=== PATIENT | female | born 1995 | race Caucasian/White ===

== ENCOUNTER 2016-08-03 21:06 | Emergency (ER) | payer OTHER ==
[~2016-08-03] VITALS: Ht 157.5 cm; Wt 68.0 kg
[~2016-08-03 21:06] MED LIST: CARAFATE1 GM/10 M1 PO; HYDROCODONE/ACE1 TA1 PO; NEXPLANON68 M1; PANTOPRAZOLE SO40 M1 PO; PREVPAC PATIEN1 EACH PO; PRILOSEC OTC20 MG PO; TRAMADOL HCL50 M1 PO; ZOFRAN ODT4 MG PO
[2016-08-03] MEDS ORDERED: TYLENOL WITH C1 EACH PO (21:49)
--- NOTE | 2016-08-03 21:50 | ED CARDIAC/CP/PALPITATIONS ---
History of Present Illness General Chief Complaint: Shoulder Injury Stated Complaint: RIGHT SIDED SHOULDER AND ARM PAIN Source: patient Exam Limitations: no limitations Vital Signs & Intake/Output Vital Signs & Intake/Output Vital Signs Date Time Temp Pulse Resp B/P Pulse O2 O2 Flow FiO2 Ox Delivery Rate 08/03 2207 97.2 75 18 138/74 98 08/03 2107 97.2 78 16 143/84 100 Room Air Allergies Coded Allergies: NO KNOWN ALLERGIES (08/03/16) Reconcile Medications Tylenol With Codeine (Tylenol With Codeine #3 Tablet) 300 MG-30 MG TABLET 1-2 TAB PO Q4-6 PRN PRN PAIN Triage Note: PT TO ED C/O RIGHT CHEST WALL PAIN RADIATING TO SHOULDER X 4 DAYS. DENIES RECENT INJURIES. HAD SAME PAIN WHEN SHE WAS YOUNGER AND WAS TOLD IT WAS GROWING PAINS. PAIN REPRODUCED BY LYING FLAT AND DEEP BREATHING. TOOK 1600MG IBUPROFEN WITHOUT RELIEF. INSTRUCTED NOT TO TAKE 2 PRESCRIPTION STRENGTH IBUPROFENS IN FUTURE Triage Nurses Notes Reviewed? yes : No Patient currently breastfeeds: No HPI: 20-year-old female with anterior right-sided chest pain that radiates into the right shoulder has been going on fairly constantly for the last 4 days. It is worse when taking a deep breaths more worse with the right arm motion, worse with palpation of the anterior sternum on the right side and pectoralis region. She has had this pain in the past, she states that 2 years old she had atrial septal defect and she used to get this pain intermittently throughout her teenage years. She has not had the pain approximately 3 or 4 years. She is taking appropriate without relief. She also has a history of stomach ulcers. There is no cough no hemoptysis no shortness of breath no dyspnea on exertion, no leg swelling or edema. She has the implantable control into her left arm. No history of PE or DVT, no tachycardia symptoms or palpitations Past History Travel History Traveled to [place] past 21 day No Medical History Any Pertinent Medical History? see below for history Neurological: NONE EENT: NONE Cardiovascular: ASD, repaired Respiratory: NONE Gastrointestinal: GALLSTONES Hepatic: NONE Renal: NONE Musculoskeletal: NONE Psychiatric: NONE Endocrine: NONE Surgical History Surgical History: ASD repair Psychosocial History What is your primary language Hebrew Tobacco Use: Never used ETOH Use: occasional use Illicit Drug Use: denies illicit drug use Family History Hx Contributory? No Review of Systems Review of Systems Constitutional: Reports: see HPI. EENTM: Reports: no symptoms. Respiratory: Reports: see HPI. Cardiovascular: Reports: see HPI. GI: Reports: no symptoms. Genitourinary: Reports: no symptoms. Musculoskeletal: Reports: no symptoms. Skin: Reports: no symptoms. Neurological/Psychological: Reports: no symptoms. Hematologic/Endocrine: Reports: no symptoms. Immunologic/Allergic: Reports: no symptoms. All Other Systems: Reviewed and Negative Physical Exam Physical Exam General Appearance: well developed/nourished, no apparent distress, alert, awake Head: atraumatic, normal appearance Eyes: Bilateral: normal appearance, PERRL, EOMI. Ears, Nose, Throat: normal pharynx, normal ENT inspection, hearing grossly normal Neck: normal inspection, supple, full range of motion Respiratory: normal breath sounds, no respiratory distress, TENDERNESS TO THE R SIDE OF THE MID STERNAL REGION AND R PECTORALIS REGION. INCREASE PAIN WITH RESISTIVE R ARM ADDUCTION Cardiovascular: regular rate/rhythm Peripheral Pulses: 4+ carotid (R), 4+ carotid (L), 4+ radial (R), 4+ radial (L) Gastrointestinal: normal bowel sounds, soft, non-tender, no organomegaly Back: normal inspection, normal range of motion Extremities: normal inspection Neurologic/Psych: no motor/sensory deficits, awake, alert, oriented x 3, normal gait Skin: intact, normal color, warm/dry Core Measures ACS in differential dx? Yes Severe Sepsis Present: No Septic Shock Present: No Progress Differential Diagnosis: AMI, aortic dissection, atrial fibrillation, cholecystitis, CHF/pulm edema, costochondritis, hyperkalemia, hypovolemia, hyperthyroid, hyperventilation, intracranial hemorrhage, musculoskeletal pain, myocarditis, pancreatitis, pericarditis, pneumonia, pneumothorax, PSVT, pulmonary embolism, PUD/GERD, PVCs/PACs, respiratory failure, rib fracture, sepsis, unstable angina, V-fib/V-Tach, WPW syndrome Plan of Care: Orders Procedure Date/time Status EKG 08/03 2114 Active Initial ED EKG: NSR, rate (65), no ST T wave changes Prior EKG: unchanged Comments: s/s cw costochondritis. rec pain medication, hx of ulcers and will avoid nsaids, (motrin ineffective). ekg wnl. no cough, no hemoptysis, no leg swelling, no sob/gaspar. rec fup with PCP if sx continue. Departure Departure Disposition: HOME OR SELF CARE Condition: Stable Clinical Impression Primary Impression: Costochondritis, acute Referrals: MICHAEL DE LA TORRE MD PATIENT HAS NO PRIMARY CARE DR (PCP/Family) Additional Instructions: TAKE MEDICATION FOR YOUR CHEST PAIN. AVOID REPEATATIVE MOTIONS OF YOUR SHOULDER. FOLLOW UP WITH A PRIMARY CARE DOCTOR IF SYMTOMS CONTINUE. Departure Forms: Customer Survey General Discharge Information Prescriptions: Current Visit Scripts Tylenol With Codeine (Tylenol With Codeine #3 Tablet) 1-2 TAB PO Q4-6 PRN PRN PAIN #15 TAB Critical Care Note Critical Care Note Critical Care Time: non-applicable
[2016-08-03 22:08] VITALS: BP 138/74
== END 2016-08-03 22:08 ==
LOC: ERH 21:06
DX: M94.0 Chondrocostal junction syndrome [Tietze] (principal)
CPT/HCPCS: 93005; 93010